=== PATIENT | male | born 1985 | race Hispanic/Latino ===

== ENCOUNTER → 2020-01-17 12:58 | Outpatient (CLI) | payer OTHER, SELFPAY ==
--- NOTE | ~2020-01-17 | CT_ITS ---
EXAMINATION: CT abdomen pelvis wo con EXAM DATE: 01/17/2020 13:25 INDICATION: Anterior abdominal wall mass. TECHNIQUE: Spiral CT of the abdomen and pelvis was performed without contrast. Axial, coronal and s agittal images were reviewed. The dose-length product (DLP) for this examination was 927.14 mGy-cm. The exposure was tailored according to patient size (auto mA exposure control), and iterative recons truction (ASIR) was used as additional dose reduction technique. There is no prior study for compari son. FINDINGS: There is hepatic steatosis without suspicious focal lesion identified. Spleen, adrenal glan ds, pancreas are unremarkable. Gallbladder is unremarkable. No biliary obstruction. There is no ne phrolithiasis or hydronephrosis. The prostate is unremarkable. The bladder is unremarkable. There is no retroperitoneal or pelvic lymphadenopathy. Small to moderate-sized left inguinal fat-contain ing hernia. No other hernias or abdominal wall mass is identified. The appendix is normal. The stomach and small bowel are unremarkable. There is expected amount of c olonic stool. No free intraperitoneal gas. The heart is normal in size. There are no pericardial or pleural effusions. The lung bases are unremarkable. There are no osteoblastic or osteolytic les ions identified. IMPRESSION: Small to moderate-sized left inguinal hernia. Reviewed, dictated and finalized at location A.
== END ==
PROVIDERS: PCP Registered Nurse; Visit Provider Registered Nurse
DX: R19.09 Other intra-abdominal and pelvic swelling, mass and lump (principal); K40.90 Unilateral inguinal hernia, without obstruction or gangrene, not specified as recurrent
CPT/HCPCS: 74176

== ENCOUNTER 2022-10-27 09:03 | Emergency (ER) | payer SELFPAY ==
[2022-10-27 09:10] VITALS: BP 168/100; PULSE 76; RESP 18; TEMP 36.1; O2SAT 98
--- NOTE | 2022-10-27 09:22 | ECG_ITS ---
Measurements Intervals [place] Rate: 80 P: 33 CO: 132 QRS: 57 QRSD: 100 T: 36 QT: 361 QTc: 417 Interpretive Statements SINUS RHYTHM NO PREVIOUS ECG AVAILABLE FOR COMPARISON Electronically Signed On 10-27-2022 11:47:36 CDT by Arian Blake M.D.
--- NOTE | 2022-10-27 09:32 | ED.GENADULT ---
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 He believes that since he was feeling the racing heartbeat that his blood pressure was high at home. He did not check it. States that he was told he was pre dispose type blood pressure, but has never been told he actively had high blood pressure or been treated for it. Patient started experiencing symptoms 2 days ago, then the resolved and started again yesterday. Patient is not currently dizzy. Denies headache, chest pain, shortness of breath, numbness or tingling in the extremities, nausea or vomiting, abdominal pain. Denies recent illness. Denies cardiac history. Patient works outside doing [employer]. States he has been drinking water but could be a bit dehydrated. Related Data Home Medications Medication Instructions Recorded Confirmed No Home Medications 10/27/22 10/27/22 Allergies Allergy/AdvReac Type Severity Reaction Status Date / Time No Known Allergies Allergy Verified 10/27/22 09:24 Review of Systems Review of Systems: CONSTITUTIONAL: Denies body aches, fever, chills, or sweats.+ fatigue EYES: Denies visual changes, redness, or discharge. ENT: Denies rhinorrhea, congestion, sore throat, or otalgia. CARDIOVASCULAR: Denies chest pain, palpitations, or edema.+ racing heartbeat RESPIRATORY: Denies cough or dyspnea. GASTROINTESTINAL: Denies abdominal pain, nausea, vomiting, or diarrhea. GENITOURINARY: Denies dysuria or hematuria. SKIN: Denies rash, itching, or wounds. MUSCULOSKELETAL: Denies back pain, joint pain, or myalgia. NEUROLOGIC: Denies headache, numbness, tingling, or weakness.+ dizziness PSYCH: Denies depression or anxiety. PMFSH Comments At time of signature, I have reviewed and agree with nursing past medical, surgical, social and family history unless otherwise noted. Please see nursing chart for further information. There is no relevant family history pertinent to the presenting complaint Exam Narrative: GENERAL: Well-appearing, well-nourished, and in no acute distress. HEAD: Normocephalic, atraumatic. EYES: EOMI. PERRL. No nystagmus. No redness or drainage. Conjunctivae normal. ENT: Mucous membranes pink and moist. Nares clear. No rhinorrhea. TMs normal bilaterally. Throat normal. Uvula midline. NECK: Normal AROM. Supple. No lymphadenopathy. CHEST: No respiratory distress. Clear to auscultation. HEART: Regular rate and rhythm. No murmur appreciated. Normal peripheral pulses. ABDOMEN: Soft, nontender, nondistended, normal active bowel sounds. MUSCULOSKELETAL: No bony tenderness. EXTREMITIES: Normal range of motion. No edema. SKIN: Warm, dry, no rash. Capillary refill normal. Normal skin turgor. NEURO: No focal deficits. Alert and oriented x3. Gait steady. Hand tin can feeder equal and strong. Dorsiflexion and plantar flexion equal and strong against resistance. PSYCH: Normal affect. No signs of depression or anxiety. Course Course Level of Care: Express Care Visit Vital Signs Vital signs: Vital Signs Temperature 96.9 F L 10/27/22 09:10 Pulse Rate 76 10/27/22 09:10 Respiratory Rate 18 10/27/22 09:10 Blood Pressure 168/100 H 10/27/22 09:10 Pulse Oximetry 98 10/27/22 09:10 Oxygen Delivery Room Air 10/27/22 09:10 Temperature 96.9 F L 10/27/22 09:10 Pulse Rate 76 10/27/22 09:10 Respiratory Rate 18 10/27/22 09:10 Blood Pressure 168/100 H 10/27/22 09:10 Pulse Oximetry 98 10/27/22 09:10 Oxygen Delivery Room Air 10/27/22 09:10 Follow up BP prior to arrival is 142/83. Medical Decision Making MDM Narrative Medical decision
[2022-10-27 09:45] VITALS: BP 142/83; PULSE 65
== END 2022-10-27 09:45 | disposition home or self-care (01) ==
PROVIDERS: Emergency Provider Nurse Practitioner; PCP Registered Nurse
DX: R53.83 Other fatigue (principal); Z87.891 Personal history of nicotine dependence
CPT/HCPCS: 93005; 99213; G0463